=== PATIENT | female | born 1995 | race Caucasian/White ===

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

== ENCOUNTER 2018-01-15 20:32 | Emergency (ER) | payer OTHER ==
[2018-01-15] MEDS: IBUPROFEN 800 MG TAB PO (21:10)
== END 2018-01-15 22:18 | disposition home or self-care (01) ==
LOC: M ED 20:32
DX: M25.561 Pain in right knee (principal); M25.562 Pain in left knee
CPT/HCPCS: 73564

== ENCOUNTER 2018-07-19 00:15 | Emergency (ER) | payer OTHER, MEDICAID ==
[~2018-07-19] VITALS: Ht 154.9 cm; Wt 70.9 kg
[~2018-07-19 00:15] MED LIST: MOBI4TAB PO; PRENTAB29 PO; SERT-155 PO; bcp's PO
[2018-07-19] MEDS ORDERED: MULTIVITAMIN -ADULT INJECTION 10 ML, THIAMINE INJection 100 MG, FOLIC ACID 1 MG in NS 1... IV ONE (01:00)
[2018-07-19 02:38] VITALS: BP 123/60
== END 2018-07-19 02:39 | disposition home or self-care (01) ==
LOC: M ED 00:15
DX: E86.0 Dehydration (principal); F41.9 Anxiety disorder, unspecified; Z88.0 Allergy status to penicillin
CPT/HCPCS: 96360; 99284; J3411

== ENCOUNTER 2018-08-21 03:57 | Emergency (ER) | payer OTHER, MEDICAID ==
[~2018-08-21] VITALS: Ht 152.4 cm; Wt 71.4 kg
[2018-08-21 03:58] VITALS: BP 122/74
[2018-08-21] MEDS ORDERED: ALL10TAB28 (04:04)
== END 2018-08-21 06:09 | disposition left against medical advice (07) ==
LOC: M ED 03:57
DX: Z53.29 Procedure and treatment not carried out because of patient's decision for other reasons (principal)

== ENCOUNTER 2018-09-13 19:17 | Emergency (ER) | payer OTHER, MEDICAID ==
[~2018-09-13] VITALS: Ht 154.9 cm; Wt 69.5 kg
[~2018-09-13 19:17] MED LIST changes: +ALL10TAB29; -SERT-155 PO; +SERT50TA29 PO
[2018-09-13 23:12] LABS: BASO % 0.3 % (0.0-1.0); EOS # 0.1 10^3/uL (0.0-0.50); HEMATOCRIT 41.6 % (36.0-47.0); HEMOGLOBIN 13.7 g/dl (12.0-15.5); LYMPH # 3.6 10^3/uL (1.5-6.5); LYMPH % 39.4 % (24.0-44.0); MEAN CORPUSCULAR HEMOGLOBIN 28.5 pg (27.0-33.0); MEAN CORPUSCULAR HGB CONC 32.9 g/dl (32.0-36.5); MEAN CORPUSCULAR VOLUME 86.5 fl (80.0-96.0); MONO # 0.6 10^3/uL (0.0-0.8); MONO % 6.5 % (0.0-5.0); NEUTROPHILS # 4.8 10^3/uL (1.8-7.7); NEUTROPHILS % 52.6 % (36.0-66.0); PLATELET COUNT, AUTOMATED 328 10^3/uL (150-450); RED BLOOD COUNT 4.81 10^6/uL (4.00-5.40); WHITE BLOOD COUNT 9.1 10^3/uL (4.0-10.0)
[2018-09-13 23:38] LABS: BLOOD UREA NITROGEN 10 MG/DL (7-18); CALCIUM LEVEL 8.8 MG/DL (8.5-10.1); CARBON DIOXIDE LEVEL 27 MEQ/L (21-32); CHLORIDE LEVEL 106 MEQ/L (98-107); CK-MB VALUE MASS < 1.0 NG/ML (<3.6); CPK CREATINE PHOSPHOKINASE 104 U/L (26-192); CREATININE FOR GFR 0.78 MG/DL (0.55-1.30); GLOMERULAR FILTRATION RATE > 60.0 (>60); GLUCOSE, FASTING 81 MG/DL (70-100); MB/CK RELATIVE INDEX 0.96 (< OR =4); POTASSIUM SERUM 3.7 MEQ/L (3.5-5.1); SODIUM LEVEL 139 MEQ/L (136-145); TROPONIN I < 0.02 NG/ML (< 0.10)
[2018-09-13 23:53] LABS: AMPHETAMINES LEVEL URINE NEGATIVE (NEGATIVE); BARBITURATES URINE NEGATIVE (NEGATIVE); BENZODIAZEPINES URINE NEGATIVE (NEGATIVE); CANNABINOIDS URINE NEGATIVE (NEGATIVE); COCAINE METABOLITE URINE NEGATIVE (NEGATIVE); METHADONE URINE NEGATIVE (NEGATIVE); OPIATES URINE NEGATIVE (NEGATIVE); PHENCYCLIDINE URINE NEGATIVE (NEGATIVE)
[2018-09-14 01:11] VITALS: BP 130/70
--- NOTE | 2018-09-14 07:41 | REP ---
Clinical: Chest pain . Comparison: None . Technique: PA and lateral. Findings: The mediastinum and cardiac silhouette are normal. The lung foreman are clear and without acute consolidation, effusion, or pneumothorax. The skeletal structures are intact and normal. Impression: 1. No acute cardiopulmonary process. Electronically Signed by Cameron Infante MD 09/14/2018 07:33 A
--- NOTE | 2018-09-14 19:43 | ECGEPIP ---
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
== END 2018-09-14 01:10 | disposition home or self-care (01) ==
LOC: M ED 19:17
DX: G44.209 Tension-type headache, unspecified, not intractable (principal); R20.2 Paresthesia of skin; I45.4 Nonspecific intraventricular block; G40.909 Epilepsy, unspecified, not intractable, without status epilepticus; Z87.820 Personal history of traumatic brain injury; F40.10 Social phobia, unspecified; Z77.098 Contact with and (suspected) exposure to other hazardous, chiefly nonmedicinal, chemicals; Z82.3 Family history of stroke; Z88.0 Allergy status to penicillin

== ENCOUNTER 2019-04-09 21:18 | Emergency (ER) | payer MEDICAID, OTHER ==
[~2019-04-09] VITALS: Ht 154.9 cm; Wt 98.3 kg
[2019-04-09] MEDS ORDERED: BENZONATATE 100 MG CAP PO ONE (22:45)
[2019-04-09] MEDS ORDERED: ALBUTEROL SULFATE 2.5 MG/0.5 ML INH NEB SOLN INH ONE (22:45)
[2019-04-09 23:16] LABS: INFLUENZA A AMPLIFICATION NEGATIVE (NEGATIVE); INFLUENZA B AMPLIFICATION POSITIVE (NEGATIVE)
[2019-04-09] MEDS ORDERED: BENZ200C70 PO (23:27)
[2019-04-09] MEDS ORDERED: VENTAER INH (23:27)
[2019-04-09] MEDS ORDERED: MUCI600T31 PO (23:27)
[2019-04-09] MEDS ORDERED: OSEL75CA PO (23:33)
[2019-04-09] MEDS ORDERED: OSELTAMIVIR PHOSPHATE 75 MG CAP (TAMIFLU) PO ONE (23:45)
[2019-04-09 23:48] VITALS: BP 118/70
--- NOTE | 2019-04-10 10:29 | REP ---
CHEST: Two views. There is no evidence of acute infiltrate. No pleural effusion is seen. The heart is normal in size. The mediastinal silhouette is unremarkable. The visualized osseous structures are intact. IMPRESSION: No acute pulmonary disease. Electronically Signed by Alcides Baker MD 04/10/2019 06:33 P
== END 2019-04-09 23:50 | disposition home or self-care (01) ==
LOC: M ED 21:18
DX: J10.89 Influenza due to other identified influenza virus with other manifestations (principal); Z79.899 Other long term (current) drug therapy; Z87.891 Personal history of nicotine dependence; Z88.0 Allergy status to penicillin

== ENCOUNTER 2019-04-18 19:11 | Emergency (ER) | payer OTHER ==
[~2019-04-18] VITALS: Ht 154.9 cm; Wt 73.6 kg
[~2019-04-18 19:11] MED LIST changes: +BENZ200C70 PO; +MUCI600T31 PO; +OSEL75CA PO; +VENTAER INH
[2019-04-18] MEDS ORDERED: NS 1,000 ML IV ONE ×2 (20:30→22:15)
[2019-04-18] MEDS ORDERED: DICYCLOMINE 10 MG CAP PO ONE (20:30)
[2019-04-18] MEDS ORDERED: ONDANSETRON 4MG/2ML VIAL (J2405) IV ONE (20:30)
[2019-04-18 21:06] LABS: INFLUENZA A AMPLIFICATION NEGATIVE (NEGATIVE); INFLUENZA B AMPLIFICATION NEGATIVE (NEGATIVE)
[2019-04-18 21:10] LABS: BASO % 0.1 % (0.0-1.0); HEMOGLOBIN 13.7 g/dl (12.0-15.5); LYMPH # 0.8 10^3/uL (1.5-5.0); LYMPH % 9.5 % (24.0-44.0); MEAN CORPUSCULAR HEMOGLOBIN 29.1 pg (27.0-33.0); MEAN CORPUSCULAR HGB CONC 33.4 g/dl (32.0-36.5); MONO # 0.3 10^3/uL (0.0-0.8); MONO % 3.7 % (0.0-5.0); NEUTROPHILS # 7.2 10^3/uL (1.5-8.5); NEUTROPHILS % 86.5 % (36.0-66.0); PLATELET COUNT, AUTOMATED 288 10^3/uL (150-450); RED BLOOD COUNT 4.71 10^6/uL (4.00-5.40); WHITE BLOOD COUNT 8.3 10^3/uL (4.0-10.0)
[2019-04-18 21:29] LABS: ALBUMIN 3.4 GM/DL (3.2-5.2); BILIRUBIN,DIRECT 0.1 MG/DL (0.0-0.2); BILIRUBIN,TOTAL 0.6 MG/DL (0.2-1.0); TOTAL PROTEIN 6.6 GM/DL (6.4-8.2)
[2019-04-18] MEDS ORDERED: ACETAMINOPHEN 325 MG TAB PO ONE (21:45)
[2019-04-18 22:50] LABS: APPEARANCE, URINE HAZY (CLEAR); BACTERIA, URINE AUTO NEGATIVE (NEGATIVE); BILIRUBIN, URINE AUTO NEGATIVE (NEGATIVE); BLOOD, URINE BLOOD NEGATIVE (NEGATIVE); COLOR, URINE YELLOW (YELLOW); GLUCOSE, URINE (UA) AUTO NEGATIVE (NEGATIVE); KETONE, URINE AUTO TRACE mg/dL (NEGATIVE); LEUKOCYTE ESTERASE, URINE AUTO 3+ (NEGATIVE); MUCUS, URINE SMALL (NEGATIVE); NITRITE, URINE AUTO NEGATIVE (NEGATIVE); PROTEIN, URINE AUTO NEGATIVE (NEGATIVE); RBC, URINE AUTO 3 /HPF (0-3); SPECIFIC GRAVITY URINE AUTO 1.024 (1.002-1.035); SQUAMOUS EPITHELIAL CELL UR AU 8 /HPF (0-6); UROBILINOGEN, URINE AUTO 0.2 mg/dL (0.0-2.0); WBC, URINE AUTO 30 /HPF (0-3)
[2019-04-18] MEDS ORDERED: NITROFURANTOIN (MACROBID) 100 MG CAP PO ONE (23:30)
[2019-04-18] MEDS ORDERED: KETOROLAC 30 MG/ML VIAL (J1885) IV ONE (23:30)
[2019-04-18] MEDS ORDERED: DICY10CA13 PO (23:31)
[2019-04-18] MEDS ORDERED: ONDA4TAB6 PO (23:31)
[2019-04-18] MEDS ORDERED: MACR100C43 PO (23:33)
[2019-04-18 23:40] VITALS: BP 106/52
--- NOTE | 2019-04-19 02:21 | REP ---
Clinical: Fever of unknown origin . Comparison: 04/09/2019 . Technique: PA and lateral. Findings: The mediastinum and cardiac silhouette are normal. The lung foreman are clear and without acute consolidation, effusion, or pneumothorax. The skeletal structures are intact and normal. Impression: 1. No acute cardiopulmonary process. Electronically Signed by Cameron Infante MD 04/19/2019 02:12 A
== END 2019-04-19 00:05 | disposition home or self-care (01) ==
LOC: M ED 19:11
DX: N39.0 Urinary tract infection, site not specified (principal); R51 Headache; D68.2 Hereditary deficiency of other clotting factors; Z88.0 Allergy status to penicillin
CPT/HCPCS: 71046; 80047; 80076; 81001; 83690; 84702; 85025; 87040; 87086; 87502; 96361; 96374; 96375; 99284; J1885; J2405

== ENCOUNTER 2019-05-05 02:44 | Emergency (ER) | payer OTHER ==
[~2019-05-05] VITALS: Ht 157.5 cm; Wt 88.3 kg
[~2019-05-05 02:44] MED LIST changes: +DICY10CA13 PO; +MACR100C43 PO; +ONDA4TAB6 PO
[2019-05-05 03:29] LABS: BASO % 0.3 % (0.0-1.0); EOS # 0.1 10^3/uL (0.0-0.5); EOS % 0.9 % (0.0-3.0); HEMATOCRIT 41.7 % (36.0-47.0); HEMOGLOBIN 14.1 g/dl (12.0-15.5); LYMPH # 3.7 10^3/uL (1.5-5.0); LYMPH % 35.3 % (24.0-44.0); MEAN CORPUSCULAR HEMOGLOBIN 29.7 pg (27.0-33.0); MEAN CORPUSCULAR HGB CONC 33.8 g/dl (32.0-36.5); MONO # 0.8 10^3/uL (0.0-0.8); MONO % 7.2 % (0.0-5.0); NEUTROPHILS # 5.9 10^3/uL (1.5-8.5); PLATELET COUNT, AUTOMATED 312 10^3/uL (150-450); RED BLOOD COUNT 4.74 10^6/uL (4.00-5.40); WHITE BLOOD COUNT 10.5 10^3/uL (4.0-10.0)
[2019-05-05 03:37] LABS: APPEARANCE, URINE CLEAR (CLEAR); BACTERIA, URINE AUTO NEGATIVE (NEGATIVE); BILIRUBIN, URINE AUTO NEGATIVE (NEGATIVE); BLOOD, URINE BLOOD NEGATIVE (NEGATIVE); COLOR, URINE YELLOW (YELLOW); GLUCOSE, URINE (UA) AUTO NEGATIVE (NEGATIVE); KETONE, URINE AUTO TRACE mg/dL (NEGATIVE); LEUKOCYTE ESTERASE, URINE AUTO NEGATIVE (NEGATIVE); MUCUS, URINE SMALL (NEGATIVE); NITRITE, URINE AUTO NEGATIVE (NEGATIVE); PROTEIN, URINE AUTO NEGATIVE (NEGATIVE); RBC, URINE AUTO 2 /HPF (0-3); SPECIFIC GRAVITY URINE AUTO 1.029 (1.002-1.035); SQUAMOUS EPITHELIAL CELL UR AU 0 /HPF (0-6); WBC, URINE AUTO 0 /HPF (0-3)
[2019-05-05] MEDS ORDERED: KETOROLAC 30 MG/ML VIAL (J1885) IV ONE (03:45)
[2019-05-05] MEDS ORDERED: ONDANSETRON 4MG/2ML VIAL (J2405) IV ONE (03:45)
[2019-05-05 04:30] LABS: ALBUMIN 3.9 GM/DL (3.2-5.2); ALT/SGPT 20 U/L (12-78); BILIRUBIN,DIRECT < 0.1 MG/DL (0.0-0.2); BILIRUBIN,TOTAL 0.3 MG/DL (0.2-1.0); LIPASE 74 U/L (73-393); TOTAL PROTEIN 7.3 GM/DL (6.4-8.2)
[2019-05-05] MEDS ORDERED: ISOVUE-370 76% 100ML VIAL (Q9967) As Ordered ONE (04:31)
--- NOTE | 2019-05-05 04:56 | REPVR ---
PROCEDURE INFORMATION: Exam: CT Abdomen And Pelvis With Contrast Exam date and time: 05/05/2019 4:25 AM Age: 24 years old Clinical indication: Abdominal pain; Localized; Right lower quadrant (rlq); Additional info: Rlq abd pain TECHNIQUE: Imaging protocol: Computed tomography of the abdomen and pelvis with intravenous contrast. Radiation optimization: All CT scans at this facility use at least one of these dose optimization techniques: automated exposure control; mA and/or kV adjustment per patient size (includes targeted exams where dose is matched to clinical indication); or iterative reconstruction. Contrast material: ISO; Contrast volume: 100 ml; Contrast route: AC; COMPARISON: No relevant prior studies available. FINDINGS: Lungs: The visualized portions of the lung bases are normal. Liver: There are no focal liver lesions present. Gallbladder and bile ducts: The gallbladder appears partially contracted. No stones are identified. No biliary ductal dilation is seen. Pancreas: The pancreas is normal with no ductal dilation. Spleen: The spleen is normal. Adrenals: The adrenal glands are normal. Kidneys and ureters: The kidneys are unremarkable. There are no ureteral stones or hydronephrosis. Stomach and bowel: The small bowel appears unremarkable. There is no dilation or thickening of the colon. Appendix: A normal appendix is identified. Intraperitoneal space: There is no evidence of free intraperitoneal or pelvic fluid. There is no free intraperitoneal air. Vasculature: No aortic aneurysm. Lymph nodes: No lymphadenopathy is seen. Bladder: The bladder is mostly collapsed. No bladder stones are identified. Reproductive: There is a tampon in the vagina.The uterus is unremarkable. A 1.8 cm peripherally enhancing lesion is noted in the right ovary, most consistent with a corpus luteum. Bones/joints: No suspicious osseous lesions. No acute fractures or dislocations. Soft tissues: There is a small periumbilical hernia containing fat. IMPRESSION: 1. Normal appearance of the appendix. 2. Corpus luteum noted in the right ovary. Electronically signed by: Janelle Jeffers On 05/05/2019 04:55:35 AM
[2019-05-05] MEDS ORDERED: NAPR-837 PO (05:59)
[2019-05-05 06:25] VITALS: BP 111/65
== END 2019-05-05 06:26 | disposition home or self-care (01) ==
LOC: M ED 02:44
DX: N83.11 Corpus luteum cyst of right ovary (principal); Z88.0 Allergy status to penicillin
CPT/HCPCS: 74177; 80047; 80076; 81001; 83690; 84702; 85025; 96374; 96375; 99284; J1885; J2405; Q9967

== ENCOUNTER 2019-06-16 21:35 | Emergency (ER) | payer OTHER ==
[~2019-06-16] VITALS: Ht 157.5 cm; Wt 80.0 kg
[2019-06-16 21:35] VITALS: BP 133/87
[~2019-06-16 21:35] MED LIST changes: +NAPR-837 PO
[2019-06-16 22:33] LABS: ABG BASE EXCESS -2.2 (-2.0-2.0); ABG HCO3 19.7 MEQ/L (22.0-26.0); ABG O2 SATURATION 98.9 % (95.0-99.0); ABG PARTIAL PRESSURE CO2 26.9 mmHg (35.0-45.0); ABG STANDARD HCO3 22.7 MEQ/L (22.0-26.0); ABG TOTAL CO2 20.5 MEQ/L (22.0-29.0); ABG pH (ARTERIAL) 7.482 UNITS (7.350-7.450); BASO % 0.4 % (0.0-1.0); EOS % 0.5 % (0.0-3.0); HEMATOCRIT 42.8 % (36.0-47.0); HEMOGLOBIN 14.5 g/dl (12.0-15.5); LYMPH # 2.8 10^3/uL (1.5-5.0); LYMPH % 32.9 % (24.0-44.0); MEAN CORPUSCULAR HEMOGLOBIN 29.7 pg (27.0-33.0); MEAN CORPUSCULAR HGB CONC 33.9 g/dl (32.0-36.5); MEAN CORPUSCULAR VOLUME 87.5 fl (80.0-96.0); MONO # 0.5 10^3/uL (0.0-0.8); MONO % 5.6 % (0.0-5.0); NEUTROPHILS # 5.1 10^3/uL (1.5-8.5); NEUTROPHILS % 60.4 % (36.0-66.0); PLATELET COUNT, AUTOMATED 305 10^3/uL (150-450); RED BLOOD COUNT 4.89 10^6/uL (4.00-5.40); WHITE BLOOD COUNT 8.4 10^3/uL (4.0-10.0)
[2019-06-16] MEDS ORDERED: ACETAMINOPHEN 500 MG TAB PO ONE (22:45)
[2019-06-16 22:59] LABS: C REACTIVE PROTEIN QUANTITATIV < 0.30 MG/DL (0.00-0.30); LDH LACTATE DEHYDROGENASE 191 U/L (84-246)
--- NOTE | 2019-06-17 03:17 | REP ---
Clinical: Cough. Coronavirus workup . Comparison: 04/18/2019 . Findings: The mediastinum and cardiac silhouette are stable and within normal limits for portable technique. The lung foreman are clear without acute consolidation, effusion, or pneumothorax. Skeletal structures are intact. Impression: No acute cardiopulmonary process appreciated. Electronically Signed by Cameron Infante MD 06/17/2019 03:09 A
== END 2019-06-16 23:26 | disposition home or self-care (01) ==
LOC: M ED 21:35
DX: R51 Headache (principal); R68.83 Chills (without fever); R43.8 Other disturbances of smell and taste; F41.9 Anxiety disorder, unspecified; Z20.828 Contact with and (suspected) exposure to other viral communicable diseases; Z88.0 Allergy status to penicillin
CPT/HCPCS: 36600; 71045; 82803; 83615; 85025; 85379; 86140; 87040; 87486; 87581; 87633; 87798; 99283; C9803; U0002

== ENCOUNTER → 2019-08-07 | Outpatient (CLI) | payer OTHER | LOC: M LABSMTC 11:07 | PROVIDERS: ATTEND Family Medicine | DX: Z03.818 Encounter for observation for suspected exposure to other biological agents ruled out (principal) | CPT/HCPCS: C9803; U0003 ==

== ENCOUNTER 2020-01-12 18:45 | Emergency (ER) | payer OTHER ==
[~2020-01-12] VITALS: Ht 160 cm; Wt 90.9 kg
[~2020-01-12 18:45] MED LIST changes: -ALL10TAB29; +CETI-24
[2020-01-12 19:49] LABS: BASO % 0.3 % (0.0-1.0); EOS % 0.3 % (0.0-3.0); HEMATOCRIT 39.8 % (36.0-47.0); HEMOGLOBIN 13.8 g/dl (12.0-15.5); LYMPH # 2.4 10^3/uL (1.5-5.0); LYMPH % 23.7 % (24.0-44.0); MEAN CORPUSCULAR HEMOGLOBIN 30.6 pg (27.0-33.0); MEAN CORPUSCULAR HGB CONC 34.7 g/dl (32.0-36.5); MEAN CORPUSCULAR VOLUME 88.2 fl (80.0-96.0); MONO # 0.5 10^3/uL (0.0-0.8); MONO % 4.6 % (0.0-5.0); NEUTROPHILS # 7.1 10^3/uL (1.5-8.5); NEUTROPHILS % 70.6 % (36.0-66.0); PLATELET COUNT, AUTOMATED 317 10^3/uL (150-450); RED BLOOD COUNT 4.51 10^6/uL (4.00-5.40); WHITE BLOOD COUNT 10.1 10^3/uL (4.0-10.0)
[2020-01-12 20:04] LABS: APPEARANCE, URINE CLEAR (CLEAR); BACTERIA, URINE AUTO NEGATIVE (NEGATIVE); BILIRUBIN, URINE AUTO NEGATIVE (NEGATIVE); BLOOD, URINE BLOOD NEGATIVE (NEGATIVE); COLOR, URINE YELLOW (YELLOW); GLUCOSE, URINE (UA) AUTO NEGATIVE (NEGATIVE); KETONE, URINE AUTO 1+ mg/dL (NEGATIVE); LEUKOCYTE ESTERASE, URINE AUTO NEGATIVE (NEGATIVE); MUCUS, URINE SMALL (NEGATIVE); NITRITE, URINE AUTO NEGATIVE (NEGATIVE); PROTEIN, URINE AUTO NEGATIVE (NEGATIVE); RBC, URINE AUTO 1 /HPF (0-3); SPECIFIC GRAVITY URINE AUTO 1.014 (1.002-1.035); SQUAMOUS EPITHELIAL CELL UR AU 0 /HPF (0-6); UROBILINOGEN, URINE AUTO 0.2 mg/dL (0.0-2.0); WBC, URINE AUTO 4 /HPF (0-3)
[2020-01-12] MEDS ORDERED: NS 1,000 ML IV ONE (20:15)
[2020-01-12 20:18] LABS: BLOOD UREA NITROGEN 7 MG/DL (7-18); CALCIUM LEVEL 8.8 MG/DL (8.5-10.1); CARBON DIOXIDE LEVEL 27 MEQ/L (21-32); CHLORIDE LEVEL 107 MEQ/L (98-107); CREATININE FOR GFR 0.78 MG/DL (0.55-1.30); GLOMERULAR FILTRATION RATE > 60.0 (>60); GLUCOSE, FASTING 109 MG/DL (70-100); HCG, SERUM QUANTITATIVE 73 MIU/ML; POTASSIUM SERUM 3.4 MEQ/L (3.5-5.1); SODIUM LEVEL 140 MEQ/L (136-145)
[2020-01-12 21:45] VITALS: BP 108/55
--- NOTE | 2020-01-12 21:45 | REPVR ---
PROCEDURE INFORMATION: Exam: US First Trimester, Transabdominal and US , Transvaginal Exam date and time: 01/12/2020 8:37 PM Age: 24 years old Clinical indication: Lmp or gestational age (in weeks): Unknown; Antepartum complications; Bleeding; ; Additional info: Vaginal bleeding TECHNIQUE: Imaging protocol: Real-time transabdominal obstetrical ultrasound of the maternal pelvis and a first trimester , less than 14 weeks 0 days, with image documentation. Transvaginal imaging was used for better evaluation of the fetus, adnexa, and/or cervix. COMPARISON: CT ABD/PEL W/IV CONTRAST ONLY 05/05/2019 4:34 AM FINDINGS: Gestation: No intrauterine gestation is visualized. MATERNAL: Uterus: Uterus measures 9.7 x 4.7 x 5.4 cm. Endometrium measures 11.2 mm. Cervix: Unremarkable. Right adnexa: Right ovary measures 3.3 x 2.1 x 2.3 cm. Right ovary appears within normal limits. Left adnexa: Left ovary measures 3.3 x 2.6 x 1.8 cm. The left ovary appears within normal limits. Intraperitoneal space: No intraperitoneal free fluid. IMPRESSION: No intrauterine gestation. Consider early IUP or spontaneous , ectopic is not excluded. Electronically signed by: Shamir Jeffers On 01/12/2020 21:45:26 PM
== END 2020-01-12 21:47 | disposition home or self-care (01) ==
LOC: M ED 18:45
DX: O26.859 Spotting complicating pregnancy, unspecified trimester (principal); O99.340 Other mental disorders complicating pregnancy, unspecified trimester; F41.9 Anxiety disorder, unspecified; F33.9 Major depressive disorder, recurrent, unspecified; O99.119 Other diseases of the blood and blood-forming organs and certain disorders involving the immune mechanism complicating pregnancy, unspecified trimester; D68.2 Hereditary deficiency of other clotting factors; Z3A.00 Weeks of gestation of pregnancy not specified; Z88.0 Allergy status to penicillin; Z87.820 Personal history of traumatic brain injury; Z87.42 Personal history of other diseases of the female genital tract; Z87.891 Personal history of nicotine dependence; Z91.410 Personal history of adult physical and sexual abuse

== ENCOUNTER 2020-05-05 17:35 | Emergency (ER) | payer OTHER ==
[~2020-05-05] VITALS: Ht 157.5 cm; Wt 89.0 kg
[2020-05-05] MEDS ORDERED: MACR100C43 PO (19:34)
[2020-05-05] MEDS ORDERED: PYRI1TAB5 PO (19:34)
[2020-05-05] MEDS ORDERED: NITROFURANTOIN (MACROBID) 100 MG CAP PO ONE (19:35)
[2020-05-05 19:44] VITALS: BP 132/88
[2020-05-05 20:59] LABS: CHLAMYDIA DNA AMPLIFICATION NEGATIVE (NEGATIVE); GC DNA AMPLIFICATION NEGATIVE (NEGATIVE)
== END 2020-05-05 19:45 | disposition home or self-care (01) ==
LOC: M ED 17:35
DX: N39.0 Urinary tract infection, site not specified (principal); D68.51 Activated protein C resistance; F17.210 Nicotine dependence, cigarettes, uncomplicated

== ENCOUNTER 2020-06-05 18:27 | Emergency (ER) | payer OTHER ==
[~2020-06-05] VITALS: Ht 157.5 cm; Wt 85.0 kg
[~2020-06-05 18:27] MED LIST changes: +PYRI1TAB5 PO
[2020-06-05] MEDS ORDERED: LIDOCAINE 1% MDV 20ML VIAL SC ONE (20:00)
[2020-06-05] MEDS ORDERED: ONDANSETRON 4 MG ORAL DISINTEGRATING TAB PO ONE (20:10)
[2020-06-05] MEDS ORDERED: ACETAMINOPHEN 325 MG TAB PO ONE (20:10)
--- NOTE | 2020-06-05 21:16 | REPVR ---
PROCEDURE INFORMATION: Exam: XR Left Finger(s) Exam date and time: 06/05/2020 7:59 PM Age: 25 years old Clinical indication: Pain; Finger(s); Left; Additional info: Trauma TECHNIQUE: Imaging protocol: XR Left fingers. Views: Minimum 2 views. COMPARISON: No relevant prior studies available. FINDINGS: Bones/joints: Subungual soft tissue swelling distal aspect of the 2nd finger. Soft tissues: Normal. IMPRESSION: Subungual soft tissue swelling distal aspect of the 2nd finger. No fracture demonstrated. Electronically signed by: Luis Kumar On 06/05/2020 21:16:05 PM
[2020-06-05] MEDS ORDERED: NEOSPORIN OINT 0.9 GM PKT TOP ONE (21:30)
[2020-06-05 22:20] VITALS: BP 142/78
== END 2020-06-05 22:22 | disposition home or self-care (01) ==
LOC: M ED 18:27
DX: S61.307A Unspecified open wound of left little finger with damage to nail, initial encounter (principal); W23.0XXA Caught, crushed, jammed, or pinched between moving objects, initial encounter; Y92.89 Other specified places as the place of occurrence of the external cause; F33.9 Major depressive disorder, recurrent, unspecified; F41.9 Anxiety disorder, unspecified; D68.2 Hereditary deficiency of other clotting factors; Z87.891 Personal history of nicotine dependence
CPT/HCPCS: 73140; 99283; Q0162

== ENCOUNTER 2020-12-16 20:44 | Emergency (ER) | payer OTHER ==
[~2020-12-16] VITALS: Ht 157.5 cm; Wt 88.0 kg
[2020-12-16 20:45] VITALS: BP 108/72
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
--- OUTSIDE RECORDS SUMMARY | 2020-12-16 22:46 | CCD | Continuity of Care Document ---
Author Author [facility] Organization [facility] Address Unknown Phone Unavailable Care Team Providers Care Small Piece Cutter Name Role Phone Cheryl Rosado NP Unavailable Unavailable Allergies, Adverse Reactions, Alerts Substance Reaction Status Criticality latex RashRash Active No Information Penicillins Nausea/Vomiti ng Active No Information Medications Medication Instructions Dosage Effective Dates (start - stop) Sta tus Comments ibuprofen 800 mg tablet 1 tab po q 8 hrs prn pain - Active mifepristone 200 mg tablet 1 tab po administered to pt in clinic - Active misoprostol 200 mcg tablet 4 tabs pv 0-48 hrs post-Mife (#4) - Active Concha 30 mg tablet 1 tab po within 120 hrs unprotected IC - Active Acetaminophen Pain Relief 500 mg tablet 2 PO q8 hrs pr n pain, max dose 6 tabs per day (max 3000mg/day) - No Longer Act radha Problems Condition Effective Dates (start - stop) Clinical Status C omments Encounter for test, result positive Encntr screen for dis of the bld/bld-form org/immun mechnsm Encntr screen for infections w sexl mode of transmiss Encounter for elective termination of Problems related to unwanted Encounter for oth general cnsl and advice on contraception Encounter for elective termination of Encntr screen for infections w sexl mode of transmiss Problems related to unwanted Unspecified blood type, Rh positive Encounter for oth general cnsl and advice on contraception Encounter for prescription of emergency contraception Activated protein C resistance Encounter for surveillance of contraceptive pills Encounter for surveillance of contraceptive pills Encounter for initial prescription of other contraceptives Encntr for f/u exam aft trtmt for cond oth than lback neoplm Encounter for test, result positive Encounter for elective termination of Unspecified blood type, Rh positive Encounter for oth general cnsl and advice on contraception Problems related to unwanted Encounter for initial prescription of contraceptive pills Implant, Insertion STI Screening Factor V Leiden mutation - Active Dx when 2 family members had strokes. Pt asx as of 04/27. Procedures Procedure Date HEMOGLOBIN Mifepristone, oral, 200 mg OFFICE/OUTPATIENT VISIT, EST TRANSVAGINAL US, OBSTETRIC Misoprostol #4 oral, 200 mcg URINE TEST CHYLMD TRACH, DNA, AMP PROBE N.GONORRHOEAE, DNA, AMP PROB HEMOGLOBIN Results Test Name Date and Time Measure Units Reference Range Abnormal Flag St atus Comments Panel Description: Chlamydia trachomatis DNA [Presence] in Specimen by RADHIKA with probe detection Final Urine CT/GC Combo - CT 00:00:00 Negative N Final Performed by:
CDD ([id number])

Panel Description: Amplified GC - Urine Final Urine CT/GC Combo - GC 00:00:00 Negative N Final : YesThis information has been disclosed to you from confidential records which are protected by law. Privacy laws prohibityou from making any further disclosure of this information without the specific written consent of the person to whom itpertains, or otherwise permitted by law. Any unauthorized further disclosure in violation of the law may result in a fineor mcc sentence or both. A general authorization for the release of medical or other information is not, except inlimited circumstances set forth in this part, sufficient authorization for further disclosure.This document contains private and confidential health information protected by state and federal law. If youhave received this document in error, please call the Media Production Operator for CDD at Ext [phone] [email or web address] [email or web address]

Performed by:
MIKEY ([id number])

Panel Description: High Sensitivity Urine Test Fi nal High Sensitivity Urine Test 12:13:23 Positive A Final Panel Description: Hemoglobin Final Hemoglobin 12:13:16 14.10 gm/dL Caro l Advance Directives Directive Yes / No Effective Date File Name No Information Encounters Encounter Description Practice Location Reason(s) For Visit Diagnose s Date Provider Providers Copied on Encounter [facility], [address] [place] [address], [id number], tel:[phone] [facility] Medication (c hief complaint) Encounter for test, result pos itiveEncntr screen for dis of the bld/bld-form org/immun mechnsmEncntr screen for infections w sexl mode of transmissEncounter for elective termination of pregnancyProblems related to unwanted pregnancyEncounter for oth general cnsl and advice on contraception Ashlee Luna. [address] [place] [address], [id number], [place]. tel:[phone] Referring Provider: Cheryl Rosado, [address] [place] [address], [id number]. tel:[phone] [address], [id number], tel:[phone] [facility] [place] Encounte r for elective termination of pregnancyEncntr screen for infections w sexl mode of transmissProblems related to unwanted pregnancyUnspecified blood type, Rh positiveEncounter for oth general cnsl and advice on contraceptionEncounter for prescription of emergency contraceptionActivated protein C resistance Vickey Mata. [address] [place] [address], [id number], [place]. tel:[phone] Referring Provider: Esperanza Hurd, [address] [place] [address], [id number]. tel:[phone] [address], [address] [place] [address], tel:[phone] [facility] [place] Encounte r for surveillance of contraceptive pills Vickey Mata. [address] [place] [address], [address] [place] [address], [place]. tel:[phone] [address], [address] [place] [address], tel:[phone] [facility] [place] Encounte r for surveillance of contraceptive pills Kena Walker. [address] [place] [address], [address] [place] [address], [place]. tel:[phone] Referring Provider: Denise Escudero, [address] [place] [address], [address] [place] [address]. tel:[phone] [address], [address] [place] [address], tel:[phone] [facility] [place] Encounte r for initial prescription of other contraceptivesEncntr for f/u exam aft trtmt for cond oth than malig neoplm Fer Hubbard. [address] [place] [address], [address] [place] [address], [place]. tel:[phone] Referring Provider: Haydee Monroe, [address] [place] [address], [address] [place] [address]. tel:[phone] [address], [address] [place] [address], tel:[phone] [facility] [place] Encounte r for test, result positiveEncounter for elective termination of pregnancyUnspecified blood type, Rh positiveEncounter for oth general cnsl and advice on contraceptionProblems related to unwanted pregnancyEncounter for initial prescription of contraceptive pills Vickey Mata. [address] [place] [address], [address] [place] [address], [place]. tel:[phone] Referring Provider: Esperanza Hurd, [address] [place] [address], [id number]. tel:[phone] [place] [address], [place], [place], [id number], tel:[phone] [facility] [place] No Information Monroemartin Crespoedward. [address] [place] [address], [id number], . tel:[phone] [facility], [address] [place] [address], [id number], tel:[phone] [facility] [place] Implant, InsertionSTI Screening Fer Cresporerenita. [address] [place] [address], [id number], [place]. tel:[phone] Referring Provider: Haydee Monroe, [address] [place] [address], [id number]. tel:[phone] Family History Family Member Diagnosis Age At Onset Daughter Stroke Family history of Cancer, breast Father Venous thromboembolism 49 Mother Cancer, unknown 1st degree relative No hx of coronary heart disease (female <65, male <55) Family history of Hypertension Immunizations Vaccine Date Status Comments No Information Payers Payer name Insurance type Covered green party ID Authorization(s ) Medicaid MC [id number] Social History Type Description Quantity Date Captured Comments Alcohol Use Details Unknown Caffeine Use Details Unknown Tobacco Use Status No Information Smoking Status Never smoker Sex Female Vital Signs Date / Time: Height Weight BMI Pulse Rate Blood Pressure Temperatu re Respiratory Rate Body Surface Area Head Circumference BMI percentile Pulse Ox In haled Ox 12:12 PM 62.00 in 192.00 lbs 35.12 kg/meter(2) 104/78 mm[Hg] 98.00 F Chief Complaint And Reason For Visit Most recent encounter only, dated '10/02/2020 11:40'. Medication (chief complaint) Reason For Referral Reason For Referral No Information Plan Of Treatment Date Type Action Status No Information History Of Present Illness Encounter Date Complaint History Of Present I llness No Information Functional Status Date Functional Assessment No Information Medications Administered Medication Instructions Dosage Effective Dates (start - stop) Sta tus Comments No Information Instructions Date Instruction Additional Informati on No Information Assessments Type Assessment Date assessment Encounter for test, result pos itive assessment Encntr screen for dis of the bld/bld-for m org/immun mechnsm assessment Encntr screen for infections w sexl mode of transmiss assessment Encounter for elective termination of pr egnancy assessment Problems related to unwanted A assessment Encounter for oth general cnsl and advic e on contraception Goals Health Concern Goal Type Priority Status Date No Information Medical Equipment Description Device Colo Device Identifier Effective John es (start - stop) Status No Information Mental Status Date Cognitive Assessment Orientation - Oriented to ti me, place, person, situation.Normal Orientation Health Concerns Observation Date No Information Concern Status Date No Information Physical Examination Exam Findings Details Neurological Normal Level of consciousne ss - Normal. Orientation - Normal. Psychiatric Normal Orientation - [place] ed to time, place, person & situation.
--- OUTSIDE RECORDS SUMMARY | 2020-12-16 22:46 | CCD | Continuity of Care Document ---
Author Author [facility] Organization [facility] Address Unknown Phone Unavailable Care Team Providers Care Hide Dropper Name Role Phone Alec FINCH, Shayna Unavailable Unavailable Allergies, Adverse Reactions, Alerts Substance [...] within 120 hrs unprotected IC - Active Problems Condition Effective Dates (start - stop) [...] trtmt for cond oth than malig neoplm Encounter for test, result positive Encounter for elective termination of Unspecified blood type, Rh positive Encounter for oth general cnsl and advice on contraception Problems related to unwanted Encounter for initial prescription of contraceptive pills Implant, Insertion STI Screening Factor V Leiden mutation - Active Dx when 2 family members had strokes. Pt asx as of 04/27. Procedures Procedure Date No Information Results Test Name Date and Time Measure Units Reference Range Abnormal Flag St atus Comments No Information Advance Directives Directive Yes / No Effective Date File Name No Information Encounters Encounter Description Practice Location Reason(s) For Visit Diagnose s Date Provider Providers Copied on Encounter [facility], [address] [place] [address], [id number], tel:[phone] [facility] Care Coordination No Info rmation Ashamauricevania Shayna. [address] [place] [address], [id number], . tel:[phone] [address], [address] [place] [address], tel:[phone] [facility] Encounte r for test, result positiveEncntr screen for dis of the bld/bld-form org/immun mechnsmEncntr screen for infections w sexl mode of transmissEncounter for elective termination of pregnancyProblems related to unwanted pregnancyEncounter for oth general cnsl and advice on contraception Ty Luna. [address] [place] [address], [id number], [place]. tel:[phone] Referring Provider: Cheryl Rosado, [address] [place] [address], [id number]. tel:[phone] [facility], [address] [place] [address], [id number], tel:[phone] [facility] [place] Encounte r for elective termination of pregnancyEncntr screen for infections w sexl mode of transmissProblems related to unwanted pregnancyUnspecified blood type, Rh positiveEncounter for oth general cnsl and advice on contraceptionEncounter for prescription of emergency contraceptionActivated protein C resistance Vickey Mata. [address] [place] [address], [id number], [place]. tel:[phone] Referring Provider: Esperanza Hurd, [address] [place] [address], [id number]. tel:[phone] [address], [id number], tel:[phone] [facility] [place] Encounte r for surveillance of contraceptive pills Vickey Mata. [address] [place] [address], [id number], . tel:[phone] [address], [id number], tel:[phone] [facility] [place] Encounte r for surveillance of contraceptive pills Kena Walker. [address] [place] [address], [id number], . tel:[phone] Referring Provider: Denise Escudero, [address] [place] [address], [id number]. tel:[phone] [address], [id number], [place] tel:[phone] [facility] [place] Encounte r for initial prescription of other contraceptivesEncntr for f/u exam aft trtmt for cond oth than malig neoplm Fer Hubbard. [address] [place] [address], [id number], . tel:[phone] Referring Provider: Haydee Monroe, [address] [place] [address], [id number]. tel:[phone] [address], [id number], tel:[phone] [facility] [place] Encounte r for test, result positiveEncounter for elective termination of pregnancyUnspecified blood type, Rh positiveEncounter for oth general cnsl and advice on contraceptionProblems related to unwanted pregnancyEncounter for initial prescription of contraceptive pills Vickey Mata. [address] [place] [address], [id number], . tel:[phone] Referring Provider: Esperanza Hurd, [address] [place] [address], [id number]. tel:[phone] [facility], [address] [place] [address], tel:[phone] [facility] [place] No Information Fer Hubbard. [address] [place] [address], [address] [place] [address], . tel:[phone] [facility] [address], [address] [place] [address], tel:[phone] [facility] [place] Implant, InsertionSTI Screening Monroe Zakedward. [address] [place] [address], [address] [place] [address], . tel:[phone] Referring Provider: Haydee Monroe, [address] [place] [address], [id number]. tel:[phone] Family History Family Member Diagnosis Age At Onset Daughter Stroke Family history of Cancer, breast Father Venous thromboembolism 49 Mother Cancer, unknown 1st degree relative No hx of coronary heart disease (female <65, male <55) Family history of Hypertension Immunizations Vaccine Date Status Comments No Information Payers Payer name Insurance type Covered democrat ID Authorization(s ) Medicaid MC [id number] Social History Type Description Quantity Date Captured Comments Alcohol Use Details Unknown Caffeine Use Details Unknown Tobacco Use Status No Information Smoking Status Never smoker Sex Female Vital Signs Date / Time: Height Weight BMI Pulse Rate Blood Pressure Temperatu re Respiratory Rate Body Surface Area Head Circumference BMI percentile Pulse Ox In haled Ox No Information Chief Complaint And Reason For Visit No Information Reason For Referral Reason For Referral No [...] on No Information Assessments Type Assessment Date No Information Goals Health Concern Goal Type Priority Status Date No Information Medical Equipment Description Device [place] Device Identifier Effective John es (start - stop) Status No Information Mental Status Date Cognitive Assessment No Information Health Concerns Observation Date No Information Concern Status Date No Information Physical Examination Exam Findings Details No Information
--- OUTSIDE RECORDS SUMMARY | 2020-12-17 00:27 | CCD ---
Author Author [facility] Organization [facility] Address Unknown Phone Unavailable Care Team Providers Care Store Clerk Cashier Name Role Phone Konstantin Rosadoia Unavailable [phone] Bassett, Cheryl Unavailable [phone] Bassett, Cheryl Unavailable [phone] Bassett, Cheryl Unavailable [phone] Rubadeaux Shayna POWER TECHNICIAN Unavailable Unavailable Rubadeaux, Shayna POWER TECHNICIAN Unavailable Unavailable Rubadeaux, Shayna POWER TECHNICIAN Unavailable Unavailable POTTER, SHAYLA Unavailable Unavailable POTTER, HSAYLA Unavailable Unavailable POTTER, SHAYLA Unavailable Unavailable POTTER, [...] is protected by Article 27-F of the [facility] Public Health law. If you continue you may have access to information: Regarding HIV / AIDS; Provided by facilities licensed or operated by the [facility] Office of Mental Health; or Provided by the [facility] Office for People With Developmental Disabilities. If such information is present, then the following [facility] mandated warning applies: This information has been [...] law may result in a fine or detention sentence or both. A general authorization for the release of medical or other information is NOT sufficient authorization for further disc losure. Family History Family Member Name Family Member Gender Family Member Status Date o f Status Description Data Source(s) Unknown Female Diagnosis 10/02/2020 12:00:00 AM EDT [facility] ([facility]) Encounters Encounter Providers Location Date Indications Data Source(s ) Attender: [facility]/16/[facility] 09:48:00 PM EDT - 10/16/2020 09:48:00 PM EDT [facility] Attender: Cheryl Rosado [facility] 11:40:00 AM EDT - 10/02/2020 11:40:00 AM EDT Encounter for oth general cnsl and advic e on contraceptionProblems related to unwanted pregnancyEncounter for elective termination of pregnancyEncntr screen for infections w sexl mode of transmiss Encntr screen for dis of the bld/bld-form org/immun mechnsmEncounter for test, result positive [facility] ([facility]) Encounter for oth general cnsl and advic e on contraception Problems related to unwanted Encounter for elective termination of pr egnancy Encntr screen for infections w sexl mode of transmiss Encntr screen for dis of the bld/bld-for m org/immun mechnsm Encounter for test, result pos itive Attender: SHAYLA HARRIS Care Coordination 03:34:00 PM EDT - 07/31/2020 03:34:00 PM EDT [facility] ([facility]) Attender: SHAYLA OSULLIVANNY Care Coordination 09:16:00 AM EDT - 07/26/2020 09:16:00 AM EDT [facility] ([facility]) Attender: SHAYLA OSULLIVANNY Care Coordination 02:02:00 PM EDT - 07/06/2020 02:02:00 PM EDT [facility] ([facility]) Attender: SHAYLA OSULLIVANNY Care Coordination 09:42:00 AM EDT - 07/05/2020 09:42:00 AM EDT [facility] ([facility]) Attender: Esperanza CHANG [facility] [place] 06/29/19 02:20:00 PM EDT - 06/28/2020 02:20:00 PM EDT Activated protein C resistanceEncounter for prescription of emergency contraceptionEncounter for oth general cnsl and advice on contraceptionUnspecified blood type, Rh positiveProblems related to unwanted pregnancyEncntr screen for infections w sexl mode of transmissEncounter for elective termination of [facility] ([facility] Activated protein C resistance Encounter for [...] administered to pt in clinic [facility] Misoprostol 0.2 MG Oral Tablet misoprostol 200 mcg tab let misoprostol 200 mcg tablet 10/02/2020 12:00:00 AM EDT active 4 tabs pv 0-48 hrs post- Mife (#4) [facility] ([facility]) Acetaminophen 500 MG Oral Tablet Acetaminophen Pain Re lief 500 mg tablet Acetaminophen Pain Relief 500 mg tablet 10/02/2020 12:00:00 AM EDT completed 2 PO q8 hrs prn pain, max dose 6 tabs per day (max 3000mg/day) [facility] Ibuprofen 800 MG Oral Tablet ibuprofen 800 mg tablet ibuprof en 800 mg tablet 10/02/2020 12:00:00 AM EDT active 1 tab po q 8 hrs prn pain [facility] Misoprostol 0.2 MG Oral Tablet misoprostol 200 mcg tab let misoprostol 200 mcg tablet 06/28/2020 12:00:00 AM EDT completed 4 tabs pv 0-48 hrs post-Mife (#4) [facility] ([facility]) Mifepristone 200 MG Oral Tablet mifepristone 200 mg ta blet mifepristone 200 mg tablet 06/28/2020 12:00:00 AM EDT completed 1 tab po administered to pt in clinic [facility] ([facility]) ulipristal acetate 30 MG Oral Tablet [Jesi] Jesi 30 mg table t Jesi 30 mg tablet 06/28/2020 12:00:00 AM EDT active ulipristal acetate 30 MG Oral Tablet [Jesi] [facility] ([facility]) Ibuprofen 800 MG Oral Tablet ibuprofen 800 mg tablet ibuprof en 800 mg tablet 06/28/2020 12:00:00 AM EDT completed 1 tab po q 8 hrs prn pain [facility] Acetaminophen 500 MG Oral Tablet Acetaminophen Pain Re lief 500 mg tablet Acetaminophen Pain Relief 500 mg tablet 06/28/2020 12:00:00 AM EDT completed 2 PO q8 hrs prn pain, max dose 6 tabs per day (max 3000mg/day) [facility] Insurance Providers Payer name Policy type / Coverage type Policy ID Covered republican ID Covered republican's relationship to marrero Policy Marrero Plan Information [facility] [id number] O [id number] [facility] [id number] S [id number] [facility] [id number] 2 [id number] MEDICAID [facility] [id number] SP [id number] CHRISTI [id number] SP [id number] CHRISTI [id number] SP [id number] MEDICAID [facility] [id number] SP [id number] CHRISTI I [id number] Self [id number] [facility] [id number] 2 [id number] EAST [employer]NA [id number] 2 [id number] EAST [facility]MANA [id number] 2 [id number] SELF PAY CHRISTI [id number] SP [id number] MEDICAID [facility] [id number] SP FF [id number] [facility] [id number] SP [id number] [place] [place] AVAILABLE MEDICAID GME W UNAVAILABLE S UNAVA ILABLE MEDICAID GME W [id number] S [id number] [place] U[place] S UNAVAILA BLE HUMANA [place] O [id number] S [id number] MEDICAID [id number] SP [id number] MEDICAID M [id number] S [id number] CHRISTI [id number] SP [id number] EAST HUMANA [id number] 2 [id number] CHRISTI [id number] SP [id number] MEDICAID GME [id number] S [id number] UNAVAILABLE UNAVAILA BLE [facility] [id number] S [id number] NO FAULT TRANG UNAVAILABLE [id number] S UNAVAIL ABLE [facility] [id number] S [id number] CHRISTI [id number] SP [id number] Problems, Conditions, and Diagnoses No Information Surgeries/Procedures Procedure Description Date Indications Data Source(s) HEMOGLOBIN 10/02/2020 12:00:00 AM EDT - 10/02/2020 1 2:00:00 AM EDT [facility] ([facility]) N.GONORRHOEAE, DNA, AMP PROB 10/02/2020 12:00:00 AM EDT - 10/02/2020 12:00:00 AM EDT [facility] ([facility]) CHYLMD TRACH, DNA, AMP PROBE 10/02/2020 12:00:00 AM EDT - 10/02/2020 12:00:00 AM EDT [facility] ([facility]) URINE TEST 10/02/2020 12:00:00 AM EDT - 10/02/2020 12:00:00 AM EDT [facility] ([facility]) Misoprostol #4 oral, 200 mcg 10/02/2020 12:00:00 AM EDT - 10/02/2020 12:00:00 AM EDT [facility] ([facility]) TRANSVAGINAL US, OBSTETRIC 10/02/2020 12 :00:00 AM EDT - 10/02/2020 12:00:00 AM EDT [facility] ([facility]) OFFICE/OUTPATIENT VISIT, EST 10/02/2020 12:00:00 AM EDT - 10/02/2020 12:00:00 AM EDT [facility] ([facility]) Mifepristone, oral, 200 mg 10/02/2020 12 :00:00 AM EDT - 10/02/2020 12:00:00 AM EDT [facility] ([facility]) HEMOGLOBIN 10/02/2020 12:00:00 AM EDT - 10/02/2020 1 2:00:00 AM EDT [facility] ([facility]) OFFICE/OUTPATIENT VISIT, EST 06/28/2020 12:00:00 AM EDT - 06/28/2020 12:00:00 AM EDT [facility] ([facility]) JESI 06/28/2020 12:00:00 AM EDT - 06/28/2020 1 2:00:00 AM EDT [facility] ([facility]) TRANSVAGINAL US, OBSTETRIC 06/28/2020 12 :00:00 AM EDT - 06/28/2020 12:00:00 AM EDT [facility] ([facility]) Misoprostol #4 oral, 200 mcg 06/28/2020 12:00:00 AM EDT - 06/28/2020 12:00:00 AM EDT [facility] ([facility]) Mifepristone, oral, 200 mg 06/28/2020 12 :00:00 AM EDT - 06/28/2020 12:00:00 AM EDT [facility] ([facility]) N.GONORRHOEAE, DNA, AMP PROB 06/28/2020 12:00:00 AM EDT - 06/28/2020 12:00:00 AM EDT [facility] ([facility]) CHYLMD TRACH, DNA, AMP PROBE 06/28/2020 12:00:00 AM EDT - 06/28/2020 12:00:00 AM EDT [facility] ([facility]) HEMOGLOBIN 06/28/2020 12:00:00 AM EDT - 06/28/2020 1 2:00:00 AM EDT [facility] ([facility]) Results ID Date Data Source [id number] 10/02/2020 12:13:23 PM EDT [facility] ([facility]) Name Value Range Interpretation Code Description Data Sarah rce(s) Supporting Document(s) Positive Abnormal (applies to non-num jakob results) High Sensitivity Urine Test [facility] ([facility]) ID Date Data Source [id number] 10/02/2020 12:13:16 PM EDT [facility] Name Value Range Interpretation Code Description Data Sarah rce(s) Supporting Document(s) 14.10 gm/dL Hemoglobin [facility] ID Date Data Source [id number] 10/02/2020 12:00:00 AM EDT [facility] ([facility]) Name Value Range Interpretation Code Description Data Sarah rce(s) Supporting Document(s) Negative Normal (applies to non-numeric resul ts) Urine CT/GC Combo - GC [facility] ([facility]) : YesThis information has been d isclosed to you from confidential records which are protected by law. Privacy laws prohibityou from making any further disclosure of this information without the specific written consent of the person to whom itpertains, or otherwise permitted by law. Any unauthorized further disclosure in violation of the law may result in a fineor detention sentence or both. A general authorization for the release of medical or other information is not, except inlimited circumstances set forth in this part, sufficient authorization for further disclosure.This document contains private and confidential health information protected by state and federal law. If youhave received this document in error, please call the Derrick Boat Operator for [employer] at Ext [phone] [email or web address] [email or web address] Performed by: MIKEY ([id number]) ID Date Data Source [id number] 10/02/2020 12:00:00 AM EDT [facility] ([facility]) Name Value Range Interpretation Code Description Data Sarah rce(s) Supporting Document(s) Negative Normal (applies to non-numeric resul ts) Urine CT/GC Combo - CT [facility] ([facility]) ID Date Data Source [id number] 06/28/2020 03:48:05 PM EDT [facility] ([facility]) Name Value Range Interpretation Code Description Data Sarah rce(s) Supporting Document(s) 15.50 gm/dL Hemoglobin [facility] ([facility]) ID Date Data Source [id number] 02/18/2020 12:00:00 AM EST [facility] Name Value Range Interpretation Code Description Data Sarah rce(s) Supporting Document(s) Carestart Rapid COVID Antigen Test Negative [facility] This lab was reported by Emmett garcia. Procedure Social History Code Duration Value Status Description Data Source(s ) Smoking 10/16/2020 12:00:00 AM EDT Never smoker completed [facility] Vital Signs ID Date Data Source UNK Name Value Range Interpretation Code Description Data Source(s) Body height 157.48 cm 157.48 cm [facility] Body weight 87.090 kg 87.090 kg [facility] Systolic blood pressure 104 mm[Hg] 104 mm[Hg] N [facility] ([facility]) Diastolic blood pressure 78 mm[Hg] 78 mm[Hg] [facility] ([facility]) Body temperature 36.67 Elizabet 36.67 Elizabet [facility] ([facility]) Body mass index (BMI) [Ratio] 35.12 kg/m2 Overweight 35.12 kg/m2 [facility] ([facility]) Body height 157.48 cm 157.48 cm [facility] ([facility]) Systolic blood pressure 124 mm[Hg] 124 mm[Hg] N [facility] ([facility]) Diastolic blood pressure 81 mm[Hg] 81 mm[Hg] [facility] ([facility]) Patient Treatment Plan of Care Planned Activity Planned Date Details Description Data Source (s) Misoprostol 0.2 MG Oral Tablet 10/02/2020 12:00:00 AM EDT [facility] ([facility]) Mifepristone 200 MG Oral Tablet 10/02/2020 12:00:00 AM EDT [facility] ([facility]) Ibuprofen 800 MG Oral Tablet 10/02/2020 12:00:00 AM EDT [facility] ([facility]) Acetaminophen 500 MG Oral Tablet 10/02/2020 12:00:00 AM EDT [facility] ([facility]) ulipristal acetate 30 MG Oral Tablet [Jesi] 06/28/2020 12:00:00 AM EDT [facility] ([facility]) Misoprostol 0.2 MG Oral Tablet 06/28/2020 12:00:00 AM EDT [facility] ([facility]) Mifepristone 200 MG Oral Tablet 06/28/2020 12:00:00 AM EDT [facility] ([facility]) Ibuprofen 800 MG Oral Tablet 06/28/2020 12:00:00 AM EDT [facility] ([facility]) Acetaminophen 500 MG Oral Tablet 06/28/2020 12:00:00 AM EDT [facility] ([facility])
== END 2020-12-17 00:31 | disposition left against medical advice (07) ==
LOC: M ED 20:44
DX: Z53.29 Procedure and treatment not carried out because of patient's decision for other reasons (principal)

== ENCOUNTER → 2023-01-30 | Outpatient (REF) | payer OTHER ==
[~2023-01-30] MED LIST changes: +DICY-61 PO; -DICY10CA13 PO; +ELIQ2.5T PO; +HYDR-643; +SERT25TA21
== END ==
LOC: M LAB REF 16:35
PROVIDERS: ATTEND Physician Assistant Medical
DX: J02.9 Acute pharyngitis, unspecified (principal)

== ENCOUNTER → 2023-02-13 | Outpatient (REF) | payer OTHER | LOC: M LAB REF 22:12 | PROVIDERS: ATTEND Physician Assistant | DX: J02.9 Acute pharyngitis, unspecified (principal) ==